=== PATIENT | female | born 1990 | race Caucasian/White ===

== ENCOUNTER 2020-07-09 11:24 | Emergency (ER) | payer OTHER ==
[~2020-07-09] VITALS: Ht 152.4 cm; Wt 81.7 kg
[~2020-07-09 11:24] MED LIST: CIPRO500 MG PO; HYDROCODONE-AP1 EAC6 PO; IBUPROFEN 800800 M1 PO; NOHOMEMEDICATIONS; NORCO 5-325 TA1 EACH PO; ONDANSETRON HCL4 M2 PO; PENICILLIN V P500 MG PO; TRINATE TABLET1 TAB PO
[2020-07-09] MEDS ORDERED: BIRTH CONTROL (11:33)
[2020-07-09] MEDS ORDERED: AMOXICILLIN 50500 MG PO (11:49)
[2020-07-09] MEDS ORDERED: TRAMADOL 50 MG50 MG PO (11:49)
[2020-07-09 11:53] VITALS: BP 137/89
== END 2020-07-09 11:53 | disposition home or self-care (01) ==
LOC: M.ERS 11:24
DX: K02.9 Dental caries, unspecified (principal); Z88.2 Allergy status to sulfonamides; Z98.890 Other specified postprocedural states